=== PATIENT | female | born 1955 | race Caucasian/White ===

== ENCOUNTER 2021-02-07 11:19 | Emergency (ER) | payer OTHER ==
[2021-02-07 12:46] LABS: HEMOGLOBIN 14.4 gm/dl (12.3-15.3); RED BLOOD COUNT 5.16 M/UL (4.00-5.10); WHITE BLOOD COUNT 8.5 K/UL (4.5-11.0)
[2021-02-07 13:09] LABS: BUN/CREATININE RATIO 28 (0-10)
[2021-02-07] MEDS ORDERED: MECLIZINE HCL25 MG PO (15:15)
[2021-02-07] MEDS ORDERED: ONDANSETRON ODT4 MG SL (15:15)
== END 2021-02-07 15:55 | disposition home or self-care (01) ==
LOC: ER1 11:19
PROVIDERS: Physician Assistant
DX: I10 Essential (primary) hypertension (principal); E78.5 Hyperlipidemia, unspecified; E87.6 Hypokalemia; E11.65 Type 2 diabetes mellitus with hyperglycemia; Z90.710 Acquired absence of both cervix and uterus; Z79.899 Other long term (current) drug therapy
CPT/HCPCS: 70450; 80053; 81001; 82550; 82553; 83874; 84484; 85025; 93005; 99284

== ENCOUNTER → 2021-12-30 | Outpatient (CLI) | payer MEDICARE ==
[~2021-12-30] MED LIST: MECLIZINE HCL25 MG PO; ONDANSETRON ODT4 MG SL
== END ==
LOC: EXRD 14:00
DX: Z78.0 Asymptomatic menopausal state (principal)
CPT/HCPCS: 77080